=== PATIENT | male | born 1940 | race Caucasian/White ===

== ENCOUNTER 2019-08-27 15:19 | Emergency (ER) | payer MEDICARE, BC ==
[~2019-08-27] VITALS: Ht 172.7 cm; Wt 67.1 kg
[~2019-08-27 15:19] MED LIST: AMLODIPINE BESYL5 MG ORAL; HYDROCHLOROTHIA25 MG ORAL; LIPITOR80 MG ORAL
--- NOTE | 2019-08-27 15:37 | NUR ---
ED Nurse Note: Pt walked into ED w/ pain on R interior foot. Pain at R foot is 10/10 since saturday. Cause unknown. R foot has swelling, hot to touch, tenderness. Pt denies numbness/pain. Pt states he cant walk w/ the pain. Pt is alert and orientedx4, normally ambulatory, but in too much pain to walk.
[2019-08-27 15:40] VITALS: BP 133/72
--- NOTE | 2019-08-27 16:13 | Emergency Room Report ---
History of Present Illness General Chief Complaint: Pain Source: Patient Present Illness HPI 78-year-old male with history of hypertension taking hydrochlorothiazide for years here complaining of sudden onset of pain in his right foot. Patient denies any fall or injury. Reports that he has history of gout however has not had a gout attack in a long time. Has not taken medication for symptom relief. Denies tingling and numbness. Resting comfortably with stable vital signs. Right big toe is slightly warm to touch. Allergies: Coded Allergies: No Known Allergies (Unverified , 05/01/16) Patient History Past Medical History: see triage record Past Surgical History: none Pertinent Family History: none Immunizations: UTD Reviewed Nursing Documentation: PMH: Agreed; PSxH: Agreed Nursing Documentation-PMH Past Medical History: No History, Except For Hx Hypertension: Yes Review of Systems All Other Systems: negative except mentioned in HPI Physical Exam Vital Signs Date Time Temp Pulse Resp B/P (MAP) Pulse Ox O2 Delivery O2 Flow Rate FiO2 08/27/19 15:23 97.9 87 19 138/75 (96) 96 Room Air Sp02 EP Interpretation: reviewed, normal General Appearance: no apparent distress, alert, GCS 15, non-toxic Head: normocephalic, atraumatic Eyes: bilateral eye normal inspection, bilateral eye PERRL ENT: hearing grossly normal, normal pharynx, no angioedema, normal voice Neck: full range of motion, supple/symm/no masses Respiratory: chest non-tender, lungs clear, normal breath sounds, no wheezing, speaking full sentences Cardiovascular #1: regular rate, rhythm, no edema, no murmur Cardiovascular #2: 2+ dorsalis pedis (R), 2+ dorsalis pedis (L) Gastrointestinal: normal bowel sounds, non tender, soft, non-distended, no guarding, no rebound Genitourinary: no CVA tenderness Musculoskeletal: back normal, no calf tenderness, pelvis stable, gait/station normal, non-tender, swelling - Right big toe Neurologic: alert, motor strength/tone normal, oriented x3, sensory intact, responsive, speech normal Psychiatric: judgement/insight normal, memory normal, mood/affect normal, no suicidal/homicidal ideation Skin: no rash Lymphatic: no adenopathy Medical Decision Making PA Attestation All my diagnosis and treatment plans were reviewed ad discussed with my supervising physician Dr. Gonzalez Diagnostic Impression: Primary Impression: Gout ER Course 78-year-old male with history of hypertension taking hydrochlorothiazide for years here complaining of sudden onset of pain in his right foot. Patient denies any fall or injury. Reports that he has history of gout however has not had a gout attack in a long time. Has not taken medication for symptom relief. Denies tingling and numbness. Resting comfortably with stable vital signs. Right big toe is slightly warm to touch. Ddx considered but are not limited to: foot fracture, foot sprain, foot contusion, foot strain, gout Vital signs: are WNL, pt. is afebrile H&PE are most consistent with: Gout ORDERS: foot Xray, indomethacin ED INTERVENTIONS: None required at this time. DISCHARGE: At this time pt. is stable for d/c to home. Will provide printed patient care instructions, and any necessary prescriptions. Care plan and follow up instructions have been discussed with the patient prior to discharge. Take medication as directed, follow-up with primary care provider, your uric acid levels need to be checked, avoid foods with high purine, if worsening symptoms return to the emergency room Other X-Ray Diagnostic Results Other X-Ray Diagnostic Results : X-Ray ordered: Right foot # of Views/Limited Vs Complete: 3 View Indication: Swelling EP Interpretation: Yes PA Xray: Interpretation reviewed, by supervising MD, and agrees with findings. Interpretation: no dislocation, no soft tissue swelling, no fractures, nonspecific bowel gas Impression: No acute disease Electronically Signed by: Isis Cheng PA-C Last Vital Signs Date Time Temp Pulse Resp B/P (MAP) Pulse Ox O2 Delivery O2 Flow Rate FiO2 08/27/19 15:40 97.9 86 21 133/72 99 Room Air Disposition: HOME, SELF-CARE Condition: Stable Scripts Indomethacin (INDOMETHACIN) 50 Mg Capsule 50 MG PO TID for 5 Days, #15 CAP Prov: Isis Clemens 08/27/19 Patient Instructions: Gout, [id number] Additional Instructions: Take medication as directed, avoid fluid with high purine intake, if worsening symptoms return to the emergency room. Have primary care provider tested for uric acid levels. Isis Clemens Aug 27, 2019 16:13
[2019-08-27] MEDS ORDERED: INDOMETHACIN50 MG PO (16:14)
--- NOTE | 2019-08-27 16:25 | NUR ---
ER DISCHARGE NOTE: Patient is cleared to be discharged per ERMD, pt is aox4, on room air, with stable vital signs. pt was given dc and prescription instructions, pt was able to verbalize understanding, pt id band removed. pt is able to ambulate with steady gait. pt took all belongings. Pt provided prescription.
[2019-08-27 16:26] VITALS: BP 124/78
--- NOTE | 2019-08-27 16:28 | Diagnostic Imaging Report ---
Indication: Right foot pain Technique: 3 views right foot Comparison: None Findings: No acute fractures. No dislocations. The joint spaces are preserved. Impression: Negative
== END 2019-08-27 16:26 | disposition home or self-care (01) ==
LOC: EMR 16:20
DX: M10.9 Gout, unspecified (principal); I10 Essential (primary) hypertension
CPT/HCPCS: 99283

== ENCOUNTER 2019-11-21 00:46 | Emergency (ER) | payer MEDICARE, BC ==
[~2019-11-21] VITALS: Ht 172.7 cm; Wt 68.0 kg
[~2019-11-21 00:46] MED LIST changes: +INDOMETHACIN50 MG PO
--- NOTE | 2019-11-21 00:55 | NUR ---
ED Nurse Note: PT WALKED TO ED C/O RIGHT FOOT PAIN X2DAYS. PT STATES HX GOUT AND WAS SEEN HERE WITH MED PX ENDOMETHACIN. VSS, NAD, AAOX4, AMBULATORY.
[2019-11-21 01:04] VITALS: BP 160/71
[2019-11-21] MEDS ORDERED: Ketorolac 30mg Inj IM ONE (01:15)
[2019-11-21] MEDS ORDERED: INDOMETHACIN50 MG PO (01:21)
--- NOTE | 2019-11-21 01:22 | Emergency Room Report ---
History of Present Illness General Chief Complaint: Pain Source: Patient Present Illness HPI This is a 79-year-old male with a history of gout. He presents with chief complaint of gouty attack to his ankle area. Onset for last 2 days. He was here 2 months ago for pain to the right MTP joint of the great toe. He said this is similar pain. He want a prescription for Indocin. No nausea no vomiting. No fever chills. Pain is 7 out of 10 pain worse with walking. No trauma. No other complaint. Worse with ambulating. Better with rest. Allergies: Coded Allergies: No Known Allergies (Unverified , 05/01/16) COVID-19 Screening Contact w/high risk pt: No Recent Travel to affected area: No Experienced COVID-19 symptoms?: No COVID-19 Testing performed [employer]PERATOR: No Patient History Past Medical History: see triage record, old chart reviewed Past Surgical History: other Pertinent Family History: none Social History: Denies: smoking Immunizations: other Reviewed Nursing Documentation: PMH: Agreed; PSxH: Agreed Nursing Documentation-PMH Past Medical History: No History, Except For Hx Hypertension: Yes Review of Systems Eye: Denies: eye pain, blurred vision ENT: Denies: ear pain, nose congestion, throat swelling Respiratory: Denies: cough, shortness of breath Cardiovascular: Denies: chest pain, palpitations Gastrointestinal: Denies: abdominal pain, diarrhea, nausea, vomiting Musculoskeletal: Reports: joint pain; Denies: back pain Skin: Denies: rash Neurological: Denies: headache, numbness Endocrine: Denies: increased thirst, increased urine Hematologic/Lymphatic: Denies: easy bruising All Other Systems: negative except mentioned in HPI Physical Exam Vital Signs Date Time Temp Pulse Resp B/P (MAP) Pulse Ox O2 Delivery O2 Flow Rate FiO2 11/21/19 00:49 97.5 79 18 160/71 (100) 95 Room Air Vitals with high blood pressure Sp02 EP Interpretation: reviewed, normal General Appearance: well appearing, no apparent distress, alert Head: normocephalic, atraumatic Eyes: bilateral eye PERRL, bilateral eye EOMI ENT: hearing grossly normal, normal pharynx Neck: full range of motion, supple, no meningismus Respiratory: chest non-tender, lungs clear, normal breath sounds Cardiovascular #1: regular rate, rhythm, no murmur Gastrointestinal: normal bowel sounds, non tender, no mass, no organomegaly, no bruit, non-distended Musculoskeletal: back normal, normal range of motion, gait/station normal, tender - Right ankle with tenderness to the medial malleolus area. Slight warmth to the touch. Full range of motion. Neurologic: oriented x3 Psychiatric: mood/affect normal Medical Decision Making Diagnostic Impression: Primary Impression: Gouty arthritis of right ankle ER Course This patient presents with a gouty arthritis. No evidence of any septic joint. No trauma. Will discharge home. Last Vital Signs Date Time Temp Pulse Resp B/P (MAP) Pulse Ox O2 Delivery O2 Flow Rate FiO2 11/21/19 01:04 97.5 73 18 160/71 98 Room Air Status: improved Disposition: HOME, SELF-CARE Condition: Stable Scripts Indomethacin (INDOMETHACIN) 50 Mg Capsule 50 MG PO TID, #30 CAP Prov: Kirill Sargent MD 11/21/19 Referrals: SANDRA JIMENEZ) (PCP) Additional Instructions: Follow-up with your doctor in 7 days. Return if symptoms worsen. Kirill Sargent MD November 21, 2019 01:22
[2019-11-21 01:25] VITALS: BP 160/71
--- NOTE | 2019-11-21 01:25 | NUR ---
ER DISCHARGE NOTE: Patient is cleared to be discharged per ERMD, pt is aox4, on room air, with stable vital signs. pt was given dc and prescription instructions, pt was able to verbalize understanding, pt id band removed without complications. pt is able to ambulate with steady gait. pt took all belongings.
== END 2019-11-21 01:25 | disposition home or self-care (01) ==
LOC: EMR 01:18
DX: M10.9 Gout, unspecified (principal); I10 Essential (primary) hypertension
CPT/HCPCS: 96372; 99283; J1885